=== PATIENT | female | born 1975 | race African-American/Black ===

== ENCOUNTER 2021-03-22 19:36 | Inpatient (IN) | payer MEDICAID ==
[~2021-03-22] VITALS: Ht 170.2 cm; Wt 119.5 kg
[2021-03-22] MEDS ORDERED: NITROGLYCERIN 0.4 MG SL TAB SL ONE (20:00)
[2021-03-22] MEDS ORDERED: FUROSEMIDE 20 MG/2 ML VIAL IV ONE (20:00)
[2021-03-22 20:37] LABS: Basophils # (auto) 0 10 ^3/uL (0-0.2); Basophils % (auto) 0.6 % (0.0-2.0); Eosinophils # (auto) 0.1 10 ^3/uL (0-0.8); Eosinophils % (auto) 1.6 % (0.0-7.0); Hematocrit 35.8 % (36.0-46.0); Hemoglobin 10.7 g/dL (12.2-16.2); Lymphocytes # (auto) 1.8 10 ^3/uL (0.4-5.4); Lymphocytes % (auto) 23.4 % (10.0-50.0); Mean Corpuscular Hemoglobin 22.9 pg (28.0-32.0); Mean Corpuscular Hgb Conc. 29.9 g/dL (32.0-36.0); Mean Corpuscular Volume 76.7 fL (80.0-100.0); Monocytes # (auto) 0.8 10 ^3/uL (0-1.3); Monocytes % (auto) 10.6 % (0.0-12.0); Neutrophils # (auto) 5.1 10 ^3/uL (1.6-8.6); Neutrophils % (auto) 63.8 % (37.0-80.0); Red Blood Cells 4.67 10^6/uL (4.0-5.20); White Blood Cell 7.9 10^3/uL (4.4-10.8)
[2021-03-22 20:38] LABS: Red Cell Distribution Width 22.2 % (11.8-14.3)
[2021-03-22 20:53] LABS: INR 1.08 (0.9-1.15); Partial Thromboplastin Time 25.6 sec (23.6-33.0)
[2021-03-22 20:56] LABS: Albumin 2.6 g/dL (3.4-5.0); Anion Gap 10 (5-15); Blood Urea Nitrogen 14 mg/dL (7-18); Calcium 8.5 mg/dL (8.5-10.1); Carbon Dioxide 23 mmol/L (21-32); Chloride 107 mmol/L (98-107); Glucose 104 mg/dL (74-106); Magnesium 2.1 mg/dL (1.6-2.6); Potassium 3.6 mmol/L (3.5-5.1); Sodium 140 mmol/L (136-145)
[2021-03-22 20:59] LABS: Alanine Aminotransferase 35 U/L (13-56); Aspartate Aminotransferase 27 U/L (15-37); GFR African American 77 mL/min; GFR Non-African American 64 mL/min
[2021-03-22 21:04] LABS: Alkaline Phosphatase 75 U/L (45-117); Bilirubin, Total 1.3 mg/dL (0.2-1.0); Total Protein 6.6 g/dL (6.4-8.2)
[2021-03-23] MEDS ORDERED: MORPHINE SULFATE INJECTION 2 MG/ML SYRG IV PRN (00:45)
[2021-03-23] MEDS ORDERED: DOCUSATE SOD 100 MG CAP PO PRN (00:45)
[2021-03-23] MEDS ORDERED: ACETAMINOPHEN 325 MG TAB PO PRN (00:45)
[2021-03-23] MEDS ORDERED: ONDANSETRON HCL 4 MG/2 ML VIAL IV PRN (00:45)
[2021-03-23] MEDS ORDERED: NITROGLYCERIN 0.4 MG SL TAB SL PRN (00:45)
[2021-03-23] MEDS ORDERED: HYDROcodone-ACET 5/325MG TAB PO PRN (00:45)
[2021-03-23] MEDS ORDERED: ALBUMIN 25% 50 ML IV ONE (00:45)
[2021-03-23 04:43] LABS: Eosinophils # (auto) 0.2 10 ^3/uL (0-0.8); Mean Corpuscular Hemoglobin 23.7 pg (28.0-32.0); Mean Corpuscular Volume 76.8 fL (80.0-100.0)
[2021-03-23 04:46] LABS: Basophils # (auto) 0 10 ^3/uL (0-0.2); Basophils % (auto) 0.5 % (0.0-2.0); Eosinophils % (auto) 2.6 % (0.0-7.0); Hemoglobin 11.4 g/dL (12.2-16.2); Lymphocytes # (auto) 2.1 10 ^3/uL (0.4-5.4); Lymphocytes % (auto) 28.2 % (10.0-50.0); Mean Corpuscular Hgb Conc. 30.9 g/dL (32.0-36.0); Monocytes # (auto) 0.9 10 ^3/uL (0-1.3); Monocytes % (auto) 11.6 % (0.0-12.0); Neutrophils # (auto) 4.2 10 ^3/uL (1.6-8.6); Neutrophils % (auto) 57.1 % (37.0-80.0); Nucleated Red Blood Cells % 0.1 %; Red Blood Cells 4.82 10^6/uL (4.0-5.20); White Blood Cell 7.3 10^3/uL (4.4-10.8)
[2021-03-23 04:55] LABS: Red Cell Distribution Width 22.1 % (11.8-14.3)
[2021-03-23 05:03] LABS: Potassium 3.7 mmol/L (3.5-5.1)
[2021-03-23 05:12] LABS: Albumin 2.7 g/dL (3.4-5.0); Bilirubin, Total 1.4 mg/dL (0.2-1.0); Calcium 8.5 mg/dL (8.5-10.1); Total Protein 6.7 g/dL (6.4-8.2)
[2021-03-23] MEDS: SODIUM CHLOR 0.9% PF (SALINE LOCK) 10ML VIAL/SYR IV SCH ×3 (06:41→21:59)
[2021-03-23] MEDS ORDERED: ASCORBIC ACID 500 MG TAB PO SCH (10:00)
[2021-03-23] MEDS: HEPARIN SODIUM (PORCINE) 5000 UNITS/ML 1ML VIAL SC SCH ×2 (10:00→22:01)
[2021-03-23] MEDS ORDERED: FAMOTIDINE (10MG/ML) 2ML VL IV SCH (10:00)
[2021-03-23] MEDS ORDERED: FUROSEMIDE 40 MG/4 ML VIAL IV SCH (10:00)
[2021-03-23] MEDS: MULTIPLE VITAMIN TAB PO SCH (10:00)
[2021-03-23] MEDS ORDERED: ZINC SULFATE 220mg CAP or TAB PO SCH (10:00)
[2021-03-23] MEDS: ASPirin 81 mg TAB PO SCH (10:00)
[2021-03-23 10:25] LABS: Barbiturate Scree,Urine NEGATIVE (NEGATIVE); Benzodiazephine Screen, Urine NEGATIVE (NEGATIVE); Cannabinoid Screen, Urine POSITIVE (NEGATIVE); Cocaine Screen, Urine POSITIVE (NEGATIVE); Opiate Scree,Urine NEGATIVE (NEGATIVE); Phencyclidine Screen, Urine POSITIVE (NEGATIVE)
[2021-03-23 10:33] LABS: Amphetamine Screen, Urine NEGATIVE (NEGATIVE)
[2021-03-23] MEDS: FUROSEMIDE 40 MG/4 ML VIAL IV SCH (18:20)
[2021-03-23] MEDS: HYDROcodone-ACET 10/325MG TAB PO PRN (20:42)
[2021-03-23] MEDS: MORPHINE SULFATE 4 MG/ML SYR/VIAL IV PRN (20:43)
[2021-03-23] MEDS: POTASSIUM CHL 10 Meq TABLET PO SCH (21:55)
[2021-03-23] MEDS: METOPROLOL TARTRATE 25 MG TAB PO SCH (21:56)
[2021-03-23] MEDS: metOLazone 5 MG TAB PO SCH (22:00)
[2021-03-24] VITALS (7 sets, daily range): BP systolic 85–107; BP diastolic 64–79
[2021-03-24] MEDS: LORazepam 2MG/ML-1ML VIAL IV PRN ×2 (01:07→13:40)
[2021-03-24] MEDS: SODIUM CHLOR 0.9% PF (SALINE LOCK) 10ML VIAL/SYR IV SCH ×3 (04:58→22:00)
[2021-03-24] MEDS: FUROSEMIDE 40 MG/4 ML VIAL IV SCH (05:31)
[2021-03-24 05:38] LABS: Basophils # (auto) 0 10 ^3/uL (0-0.2); Mean Corpuscular Hgb Conc. 30.7 g/dL (32.0-36.0); Mean Corpuscular Volume 76.6 fL (80.0-100.0); Nucleated Red Blood Cells % 0.1 %; Red Blood Cells 4.57 10^6/uL (4.0-5.20); Red Cell Distribution Width 22.6 % (11.8-14.3)
[2021-03-24 05:44] LABS: Potassium 4.1 mmol/L (3.5-5.1)
[2021-03-24 05:45] LABS: Basophils % (auto) 0.6 % (0.0-2.0); Eosinophils # (auto) 0.2 10 ^3/uL (0-0.8); Eosinophils % (auto) 2.7 % (0.0-7.0); Hematocrit 35.1 % (36.0-46.0); Hemoglobin 10.8 g/dL (12.2-16.2); Lymphocytes # (auto) 1.7 10 ^3/uL (0.4-5.4); Lymphocytes % (auto) 25.4 % (10.0-50.0); Mean Corpuscular Hemoglobin 23.6 pg (28.0-32.0); Monocytes # (auto) 0.7 10 ^3/uL (0-1.3); Monocytes % (auto) 9.8 % (0.0-12.0); Neutrophils # (auto) 4.1 10 ^3/uL (1.6-8.6); Neutrophils % (auto) 61.5 % (37.0-80.0); White Blood Cell 6.7 10^3/uL (4.4-10.8)
[2021-03-24 05:53] LABS: Albumin 2.6 g/dL (3.4-5.0); BUN/Creatinine Ratio 17.7; Bilirubin, Total 1.2 mg/dL (0.2-1.0); Calcium 8.7 mg/dL (8.5-10.1); Total Protein 6.5 g/dL (6.4-8.2)
[2021-03-24] MEDS: ASPirin 81 mg TAB PO SCH (09:50)
[2021-03-24] MEDS: MULTIPLE VITAMIN TAB PO SCH (09:50)
[2021-03-24] MEDS: POTASSIUM CHL 10 Meq TABLET PO SCH ×2 (09:50→21:51)
[2021-03-24] MEDS: METOPROLOL TARTRATE 25 MG TAB PO SCH ×2 (09:53→21:51)
[2021-03-24] MEDS: metOLazone 5 MG TAB PO SCH ×2 (09:53→21:50)
[2021-03-24] MEDS: HYDROcodone-ACET 10/325MG TAB PO PRN ×3 (09:54→21:51)
[2021-03-24] MEDS: HEPARIN SODIUM (PORCINE) 5000 UNITS/ML 1ML VIAL SC SCH ×2 (10:02→22:00)
[2021-03-24] MEDS: MORPHINE SULFATE 4 MG/ML SYR/VIAL IV PRN (15:03)
[2021-03-24] MEDS ORDERED: FUROSEMIDE 40 MG/4 ML VIAL IV SCH (18:00)
[2021-03-25] MEDS: HYDROcodone-ACET 10/325MG TAB PO PRN ×4 (04:02→20:14)
[2021-03-25 05:00] VITALS: BP 95/60
[2021-03-25] MEDS: SODIUM CHLOR 0.9% PF (SALINE LOCK) 10ML VIAL/SYR IV SCH ×3 (06:00→22:00)
[2021-03-25] MEDS: POTASSIUM CHL 10 Meq TABLET PO SCH (09:14)
[2021-03-25] MEDS: ASPirin 81 mg TAB PO SCH (09:15)
[2021-03-25] MEDS: MULTIPLE VITAMIN TAB PO SCH (09:15)
[2021-03-25] MEDS: METOPROLOL TARTRATE 25 MG TAB PO SCH ×2 (09:18→22:00)
[2021-03-25] MEDS: FUROSEMIDE 40 MG/4 ML VIAL IV SCH (09:19)
[2021-03-25] MEDS: metOLazone 5 MG TAB PO SCH (09:20)
[2021-03-25] MEDS: HEPARIN SODIUM (PORCINE) 5000 UNITS/ML 1ML VIAL SC SCH ×2 (09:33→22:00)
[2021-03-25 09:38] VITALS: BP 96/61
[2021-03-25] MEDS: InsuLIN REG 1unit/0.01ml Soln (100units/ml) SC SCH ×3 (11:30→22:00)
[2021-03-25] MEDS: ACCU-CHEK COMFORT CURVE STRIP VI SCH ×3 (11:30→22:00)
[2021-03-25] MEDS ORDERED: DEXTROSE (50%) 50ML SYRG IV PRN (11:30)
[2021-03-25 12:47] VITALS: BP 100/57
[2021-03-25] MEDS ORDERED: ALBUTEROL SULF 2.5 MG/0.5ML(0.5%) NEB SOLN NEB PRN (14:00)
[2021-03-25] MEDS ORDERED: IPRATROPIUM BROM 0.5 MG/2.5ML INH SOL NEB PRN (14:00)
[2021-03-25] MEDS: LORazepam 2MG/ML-1ML VIAL IV PRN (16:14)
[2021-03-25 16:59] VITALS: BP 99/59
[2021-03-25 23:37] VITALS: BP 96/48
[2021-03-26] MEDS: HYDROcodone-ACET 10/325MG TAB PO PRN ×2 (01:04→06:05)
[2021-03-26 05:16] VITALS: BP 99/51
[2021-03-26 05:57] VITALS: BP 120/78
[2021-03-26] MEDS: SODIUM CHLOR 0.9% PF (SALINE LOCK) 10ML VIAL/SYR IV SCH ×2 (06:00→14:00)
[2021-03-26] MEDS: InsuLIN REG 1unit/0.01ml Soln (100units/ml) SC SCH ×2 (06:30→11:30)
[2021-03-26] MEDS: ACCU-CHEK COMFORT CURVE STRIP VI SCH ×2 (06:30→11:48)
[2021-03-26 06:46] LABS: INR 1.08 (0.9-1.15); Partial Thromboplastin Time 25.2 sec (23.6-33.0)
[2021-03-26 07:00] LABS: BUN/Creatinine Ratio 24.2; Calcium 9.1 mg/dL (8.5-10.1)
[2021-03-26 08:20] VITALS: BP 120/73
[2021-03-26 09:00] VITALS: BP 120/73
[2021-03-26] MEDS: ASPirin 81 mg TAB PO SCH (09:32)
[2021-03-26] MEDS: FUROSEMIDE 40 MG/4 ML VIAL IV SCH (09:32)
[2021-03-26] MEDS: MULTIPLE VITAMIN TAB PO SCH (09:34)
[2021-03-26] MEDS: METOPROLOL TARTRATE 25 MG TAB PO SCH (09:34)
[2021-03-26] MEDS: HEPARIN SODIUM (PORCINE) 5000 UNITS/ML 1ML VIAL SC SCH (09:35)
[2021-03-26] MEDS ORDERED: POTASSIUM CHL 10 Meq TABLET PO SCH (10:00)
[2021-03-26] MEDS ORDERED: metOLazone 5 MG TAB PO SCH (10:00)
[2021-03-26 12:57] VITALS: BP 118/70
[2021-03-26 13:00] VITALS: BP 118/70
[2021-03-26] MEDS ORDERED: LISI-275 PO (14:02)
[2021-03-26] MEDS ORDERED: POTA8TAB15 PO (14:02)
[2021-03-26] MEDS ORDERED: CAR3125T PO (14:02)
[2021-03-26] MEDS ORDERED: TORS5TAB8 PO (14:02)
== END 2021-03-26 15:00 | disposition home or self-care (01) | DRG 194 ==
LOC: ER 19:36 → EDBD 19:36 → TELE 03-23 00:39 → TELE-CENTR 03-23 23:18
PROVIDERS: ADMIT Nurse Practitioner Family; ATTEND Hospitalist
DX: I11.0 Hypertensive heart disease with heart failure (principal); I42.0 Dilated cardiomyopathy; E88.09 Other disorders of plasma-protein metabolism, not elsewhere classified; I50.23 Acute on chronic systolic (congestive) heart failure; Z20.822 Contact with and (suspected) exposure to COVID-19; E11.9 Type 2 diabetes mellitus without complications; E66.01 Morbid (severe) obesity due to excess calories; F12.90 Cannabis use, unspecified, uncomplicated; F19.20 Other psychoactive substance dependence, uncomplicated; I49.3 Ventricular premature depolarization; G89.29 Other chronic pain; J44.9 Chronic obstructive pulmonary disease, unspecified; Z87.891 Personal history of nicotine dependence; Z91.14 Patient's other noncompliance with medication regimen; Z68.41 Body mass index [BMI] 40.0-44.9, adult
CPT/HCPCS: 36415; 71045; 80048; 80053; 80061; 80307; 82962; 83036; 83735; 83880; 84484; 85025; 85379; 85610; 85730; 87426; 93005; 93306; 94640; 96365; 96375; 96376; G0378; J3490

== ENCOUNTER 2021-03-30 22:24 | Inpatient (IN) | payer MEDICAID ==
[~2021-03-30] VITALS: Ht 172.7 cm; Wt 129.0 kg
[~2021-03-30 22:24] MED LIST: CAR3125T PO; LISI-275 PO; POTA8TAB15 PO; TORS5TAB8 PO
[2021-03-30] MEDS ORDERED: FUROSEMIDE 40 MG/4 ML VIAL IV ONE (22:45)
[2021-03-30 23:06] LABS: Basophils # (auto) 0.1 10 ^3/uL (0-0.2); Eosinophils # (auto) 0.1 10 ^3/uL (0-0.8); Hemoglobin 10.9 g/dL (12.2-16.2)
[2021-03-30 23:08] LABS: Basophils % (auto) 0.7 % (0.0-2.0); Eosinophils % (auto) 1.1 % (0.0-7.0); Hematocrit 36.2 % (36.0-46.0); Mean Corpuscular Volume 76.9 fL (80.0-100.0); Monocytes % (auto) 13.1 % (0.0-12.0); Neutrophils # (auto) 4.2 10 ^3/uL (1.6-8.6); Neutrophils % (auto) 57.1 % (37.0-80.0); Nucleated Red Blood Cells % 0.1 %; Red Blood Cells 4.71 10^6/uL (4.0-5.20); Red Cell Distribution Width 22.4 % (11.8-14.3); White Blood Cell 7.3 10^3/uL (4.4-10.8)
[2021-03-30 23:13] LABS: Urine Bacteria NONE SEEN /hpf (None Seen); Urine Blood 1+ /uL (Negative); Urine Hyaline Cast FEW /lpf (0 - 2); Urine Mucus FEW (None Seen); Urine Specific Gravity 1.018 (1.001-1.035); Urine WBC 278 /hpf (0 - 5)
[2021-03-30 23:25] LABS: Alanine Aminotransferase 40 U/L (13-56); Albumin 2.8 g/dL (3.4-5.0); Aspartate Aminotransferase 32 U/L (15-37); BUN/Creatinine Ratio 20.3; Blood Urea Nitrogen 30 mg/dL (7-18); Calcium 9.2 mg/dL (8.5-10.1); Carbon Dioxide 22 mmol/L (21-32); GFR African American 49 mL/min; GFR Non-African American 41 mL/min; Glucose 124 mg/dL (74-106)
[2021-03-30 23:32] LABS: Alkaline Phosphatase 77 U/L (45-117); Bilirubin, Total 1.1 mg/dL (0.2-1.0); Total Protein 6.8 g/dL (6.4-8.2)
[2021-03-31 00:26] LABS: Anion Gap 12 (5-15); Chloride 110 mmol/L (98-107); Potassium 4.8 mmol/L (3.5-5.1); Sodium 144 mmol/L (136-145)
[2021-03-31] MEDS ORDERED: cefTRIAXone 1GM/50ML D5W 50 ML IV ONE (00:30)
[2021-03-31] MEDS ORDERED: SODIUM CHLORIDE 0.9% 250 ML IV ONE (00:45)
[2021-03-31] MEDS ORDERED: NITROGLYCERIN 0.4 MG SL TAB SL PRN (01:30)
[2021-03-31] MEDS ORDERED: methylPREDNISolone SOD SUCC 125 MG/2 ML VL IV ONE (01:30)
[2021-03-31] MEDS ORDERED: DEXTROSE (50%) 50ML SYRG IV PRN (01:30)
[2021-03-31] MEDS ORDERED: MORPHINE SULFATE INJECTION 2 MG/ML SYRG IV PRN (01:30)
[2021-03-31] MEDS ORDERED: ACETAMINOPHEN 325 MG TAB PO PRN (01:30)
[2021-03-31] MEDS ORDERED: ONDANSETRON HCL 4 MG/2 ML VIAL IV PRN (01:30)
[2021-03-31] MEDS ORDERED: ALBUMIN 25% 100 ML IV ONE (01:30)
[2021-03-31] MEDS: HYDROcodone-ACET 5/325MG TAB PO PRN ×4 (02:31→22:46)
[2021-03-31 04:15] LABS: Hematocrit 34.9 % (36.0-46.0); Hemoglobin 10.9 g/dL (12.2-16.2)
[2021-03-31 04:17] LABS: Basophils # (auto) 0.1 10 ^3/uL (0-0.2); Basophils % (auto) 0.8 % (0.0-2.0); Eosinophils # (auto) 0.1 10 ^3/uL (0-0.8); Eosinophils % (auto) 1.4 % (0.0-7.0); Lymphocytes # (auto) 1.5 10 ^3/uL (0.4-5.4); Lymphocytes % (auto) 22.3 % (10.0-50.0); Mean Corpuscular Hemoglobin 23.8 pg (28.0-32.0); Mean Corpuscular Hgb Conc. 31.2 g/dL (32.0-36.0); Mean Corpuscular Volume 76.2 fL (80.0-100.0); Monocytes # (auto) 0.6 10 ^3/uL (0-1.3); Monocytes % (auto) 8.9 % (0.0-12.0); Neutrophils # (auto) 4.5 10 ^3/uL (1.6-8.6); Neutrophils % (auto) 66.6 % (37.0-80.0); Nucleated Red Blood Cells % 0.3 %; Red Blood Cells 4.58 10^6/uL (4.0-5.20); Red Cell Distribution Width 22.1 % (11.8-14.3); White Blood Cell 6.8 10^3/uL (4.4-10.8)
[2021-03-31 04:30] LABS: Albumin 2.8 g/dL (3.4-5.0); BUN/Creatinine Ratio 22.4; Calcium 8.8 mg/dL (8.5-10.1); Potassium 3.9 mmol/L (3.5-5.1)
[2021-03-31 04:32] LABS: Bilirubin, Total 1.1 mg/dL (0.2-1.0); Total Protein 6.8 g/dL (6.4-8.2)
[2021-03-31] MEDS: SODIUM CHLOR 0.9% PF (SALINE LOCK) 10ML VIAL/SYR IV SCH ×3 (06:08→22:00)
[2021-03-31] MEDS: ACCU-CHEK COMFORT CURVE STRIP VI SCH ×4 (06:41→22:18)
[2021-03-31] MEDS: InsuLIN REG 1unit/0.01ml Soln (100units/ml) SC SCH ×3 (06:42→17:23)
[2021-03-31 08:30] VITALS: BP 113/67
[2021-03-31 09:00] VITALS: BP 113/67
[2021-03-31] MEDS ORDERED: FUROSEMIDE 20 MG/2 ML VIAL IV SCH (10:00)
[2021-03-31] MEDS: MULTIPLE VITAMIN TAB PO SCH (10:03)
[2021-03-31] MEDS: ASCORBIC ACID 500 MG TAB PO SCH ×2 (10:03→22:05)
[2021-03-31] MEDS: ZINC SULFATE 220mg CAP or TAB PO SCH (10:03)
[2021-03-31] MEDS: FAMOTIDINE (10MG/ML) 2ML VL IV SCH ×2 (10:03→22:04)
[2021-03-31] MEDS: HEPARIN SODIUM (PORCINE) 5000 UNITS/ML 1ML VIAL SC SCH ×2 (10:04→22:20)
[2021-03-31 13:00] VITALS: BP 115/68
[2021-03-31] MEDS: CARVEDILOL 3.125 MG TAB PO SCH ×2 (14:50→22:10)
[2021-03-31 17:00] VITALS: BP 141/75
[2021-03-31] MEDS: FUROSEMIDE 40 MG/4 ML VIAL IV SCH (18:00)
[2021-03-31 22:00] VITALS: BP 112/70
[2021-03-31] MEDS ORDERED: cefTRIAXone 1GM/50ML D5W 50 ML IV SCH (22:00)
[2021-03-31] MEDS ORDERED: InsuLIN REG 1unit/0.01ml Soln (100units/ml) SC SCH (22:00)
[2021-04-01 05:00] VITALS: BP 110/69
[2021-04-01 05:15] LABS: Eosinophils # (auto) 0 10 ^3/uL (0-0.8); Eosinophils % (auto) 0.2 % (0.0-7.0); Monocytes # (auto) 1.3 10 ^3/uL (0-1.3); Neutrophils # (auto) 7.3 10 ^3/uL (1.6-8.6); Nucleated Red Blood Cells % 0.1 %
[2021-04-01 05:17] LABS: Basophils # (auto) 0.1 10 ^3/uL (0-0.2); Basophils % (auto) 0.5 % (0.0-2.0); Hematocrit 36.2 % (36.0-46.0); Hemoglobin 11.4 g/dL (12.2-16.2); Lymphocytes # (auto) 2.3 10 ^3/uL (0.4-5.4); Lymphocytes % (auto) 20.8 % (10.0-50.0); Mean Corpuscular Hemoglobin 24.1 pg (28.0-32.0); Mean Corpuscular Hgb Conc. 31.5 g/dL (32.0-36.0); Mean Corpuscular Volume 76.3 fL (80.0-100.0); Monocytes % (auto) 11.8 % (0.0-12.0); Neutrophils % (auto) 66.7 % (37.0-80.0); Red Blood Cells 4.74 10^6/uL (4.0-5.20); Red Cell Distribution Width 21.7 % (11.8-14.3)
[2021-04-01 05:23] LABS: Albumin 2.9 g/dL (3.4-5.0); Calcium 9.3 mg/dL (8.5-10.1)
[2021-04-01 05:26] LABS: BUN/Creatinine Ratio 24.8
[2021-04-01 05:45] LABS: Bilirubin, Total 1.4 mg/dL (0.2-1.0); Total Protein 7.1 g/dL (6.4-8.2)
[2021-04-01] MEDS: FUROSEMIDE 40 MG/4 ML VIAL IV SCH (06:11)
[2021-04-01] MEDS: SODIUM CHLOR 0.9% PF (SALINE LOCK) 10ML VIAL/SYR IV SCH ×2 (06:16→14:17)
[2021-04-01] MEDS: InsuLIN REG 1unit/0.01ml Soln (100units/ml) SC SCH ×3 (06:17→16:42)
[2021-04-01] MEDS: ACCU-CHEK COMFORT CURVE STRIP VI SCH ×3 (06:49→16:42)
[2021-04-01] MEDS: CARVEDILOL 3.125 MG TAB PO SCH (08:56)
[2021-04-01] MEDS: FAMOTIDINE (10MG/ML) 2ML VL IV SCH (08:57)
[2021-04-01] MEDS: ASCORBIC ACID 500 MG TAB PO SCH (08:57)
[2021-04-01] MEDS: MULTIPLE VITAMIN TAB PO SCH (08:57)
[2021-04-01] MEDS: ZINC SULFATE 220mg CAP or TAB PO SCH (08:57)
[2021-04-01] MEDS: HEPARIN SODIUM (PORCINE) 5000 UNITS/ML 1ML VIAL SC SCH (08:58)
[2021-04-01] MEDS: HYDROcodone-ACET 5/325MG TAB PO PRN (08:59)
[2021-04-01 09:00] VITALS: BP 97/66
[2021-04-01] MEDS ORDERED: CAR3125T PO (11:20)
[2021-04-01] MEDS ORDERED: CEPH500T PO (11:20)
[2021-04-01] MEDS ORDERED: FURO1TAB31 PO (11:21)
[2021-04-01 13:00] VITALS: BP 89/73
[2021-04-01 14:20] VITALS: BP 114/69
[2021-04-01] MEDS ORDERED: BAC09TP TOP (15:14)
[2021-04-01] MEDS ORDERED: MUPIROCIN 2% OINT 15gm or 22gm TOP SCH (15:15)
[2021-04-01 16:29] LABS: Protein, Urine 32.4 mg/dL (0.0-11.9)
[2021-04-01 17:00] VITALS: BP 101/68
[2021-04-01] MEDS ORDERED: ALBU0.08 HHN (17:10)
[2021-04-01] MEDS ORDERED: IPR002IS NEB (17:10)
[2021-04-01] MEDS ORDERED: ALBUAER3 IN (17:10)
== END 2021-04-01 18:44 | disposition home health service (06) | DRG 469 ==
LOC: ER 22:25 → TELE 03-31 01:25 → TELE-WESTW 03-31 08:00
PROVIDERS: ADMIT Nurse Practitioner Family; ATTEND Nurse Practitioner Family
DX: N17.9 Acute kidney failure, unspecified (principal); I50.23 Acute on chronic systolic (congestive) heart failure; I42.9 Cardiomyopathy, unspecified; E11.22 Type 2 diabetes mellitus with diabetic chronic kidney disease; E88.09 Other disorders of plasma-protein metabolism, not elsewhere classified; L97.329 Non-pressure chronic ulcer of left ankle with unspecified severity; I13.0 Hypertensive heart and chronic kidney disease with heart failure and stage 1 through stage 4 chronic kidney disease, or unspecified chronic kidney disease; E11.622 Type 2 diabetes mellitus with other skin ulcer; E66.01 Morbid (severe) obesity due to excess calories; Z68.41 Body mass index [BMI] 40.0-44.9, adult; G89.29 Other chronic pain; M54.5 Low back pain; Z20.822 Contact with and (suspected) exposure to COVID-19; J44.9 Chronic obstructive pulmonary disease, unspecified; N18.2 Chronic kidney disease, stage 2 (mild); N39.0 Urinary tract infection, site not specified; R09.02 Hypoxemia; Z79.899 Other long term (current) drug therapy; Z87.891 Personal history of nicotine dependence; Z98.891 History of uterine scar from previous surgery; Z91.14 Patient's other noncompliance with medication regimen
CPT/HCPCS: 36415; 71045; 76775; 80053; 81001; 81025; 82570; 82962; 83880; 84156; 84484; 85025; 87081; 87086; 87426; 93005; 96365; 96367; 96375; G0378; J0696; J1815; J3490; P9047

== ENCOUNTER 2021-05-22 08:14 | Inpatient (IN) | payer MEDICAID ==
[~2021-05-22] VITALS: Ht 170.2 cm; Wt 124.6 kg
[~2021-05-22 08:14] MED LIST changes: +ALBU0.08 HHN; +ALBUAER3 IN; +BAC09TP TOP; +CEPH500T PO; +FURO1TAB31 PO; +IPR002IS NEB; -LISI-275 PO; -POTA8TAB15 PO; -TORS5TAB8 PO
[2021-05-22] MEDS ORDERED: FUROSEMIDE 40 MG/4 ML VIAL IV ONE (08:45)
[2021-05-22] MEDS ORDERED: ASPirin 81 mg TAB PO ONE (08:45)
[2021-05-22 08:56] LABS: Basophils # (auto) 0.1 10 ^3/uL (0-0.2); Basophils % (auto) 0.7 % (0.0-2.0); Eosinophils # (auto) 0.1 10 ^3/uL (0-0.8); Hematocrit 36.8 % (36.0-46.0); Hemoglobin 11.4 g/dL (12.2-16.2); Lymphocytes # (auto) 1.7 10 ^3/uL (0.4-5.4); Lymphocytes % (auto) 21.5 % (10.0-50.0); Mean Corpuscular Hemoglobin 24.1 pg (28.0-32.0); Mean Corpuscular Volume 77.8 fL (80.0-100.0); Monocytes # (auto) 0.8 10 ^3/uL (0-1.3); Monocytes % (auto) 10.4 % (0.0-12.0); Neutrophils # (auto) 5.2 10 ^3/uL (1.6-8.6); Neutrophils % (auto) 66.4 % (37.0-80.0); Nucleated Red Blood Cells % 0.1 %; Red Blood Cells 4.73 10^6/uL (4.0-5.20); Red Cell Distribution Width 19.1 % (11.8-14.3); White Blood Cell 7.8 10^3/uL (4.4-10.8)
[2021-05-22 09:15] LABS: Albumin 2.9 g/dL (3.4-5.0); Calcium 8.4 mg/dL (8.5-10.1); Potassium 3.8 mmol/L (3.5-5.1)
[2021-05-22 09:20] LABS: BUN/Creatinine Ratio 9.6; Bilirubin, Total 2.4 mg/dL (0.2-1.0); Total Protein 7.1 g/dL (6.4-8.2)
[2021-05-22 10:27] LABS: Urine Bacteria NONE SEEN /hpf (None Seen); Urine Blood 1+ /uL (Negative); Urine Specific Gravity 1.008 (1.001-1.035); Urine WBC 114 /hpf (0 - 5)
[2021-05-22] MEDS ORDERED: MORPHINE SULFATE 4 MG/ML SYR/VIAL IV ONE (11:45)
[2021-05-22] MEDS ORDERED: ONDANSETRON HCL 4 MG/2 ML VIAL IV ONE (11:45)
[2021-05-22] MEDS ORDERED: MORPHINE SULFATE INJECTION 2 MG/ML SYRG IV PRN (13:45)
[2021-05-22] MEDS ORDERED: ACETAMINOPHEN 325 MG TAB PO PRN (13:45)
[2021-05-22] MEDS ORDERED: ALBUTEROL SULF 2.5 MG/0.5ML(0.5%) NEB SOLN NEB PRN (13:45)
[2021-05-22] MEDS ORDERED: DEXTROSE (50%) 50ML SYRG IV PRN (13:45)
[2021-05-22] MEDS ORDERED: NITROGLYCERIN 0.4 MG SL TAB SL PRN (13:45)
[2021-05-22] MEDS ORDERED: HYDROcodone-ACET 5/325MG TAB PO PRN (13:45)
[2021-05-22 13:59] VITALS: BP 118/79
[2021-05-22] MEDS: cefTRIAXone 1GM/50ML D5W 50 ML IV SCH (15:06)
[2021-05-22] MEDS: POTASSIUM CHL 20 Meq TABLET PO SCH (15:06)
[2021-05-22 15:31] LABS: Cholesterol 112 mg/dL (< 200); HDL Cholesterol 37 mg/dL (40-59); LDL Cholesterol 79 mg/dL (< 100); Triglycerides 56 mg/dL (< 150)
[2021-05-22 15:48] LABS: Barbiturate Scree,Urine NEGATIVE (NEGATIVE); Benzodiazephine Screen, Urine NEGATIVE (NEGATIVE); Opiate Scree,Urine NEGATIVE (NEGATIVE)
[2021-05-22 16:07] LABS: Phencyclidine Screen, Urine NEGATIVE (NEGATIVE)
[2021-05-22 16:08] LABS: Amphetamine Screen, Urine POSITIVE (NEGATIVE); Cannabinoid Screen, Urine POSITIVE (NEGATIVE); Cocaine Screen, Urine POSITIVE (NEGATIVE)
[2021-05-22] MEDS: InsuLIN REG 1unit/0.01ml Soln (100units/ml) SC SCH (17:00)
[2021-05-22] MEDS: ACCU-CHEK COMFORT CURVE STRIP VI SCH (17:01)
[2021-05-22] MEDS: FUROSEMIDE 40 MG/4 ML VIAL IV SCH (17:47)
[2021-05-22 20:00] VITALS: BP 125/77
[2021-05-22] MEDS ORDERED: ATORVASTATIN 20 MG TAB PO SCH (22:00)
[2021-05-22] MEDS ORDERED: InsuLIN REG 1unit/0.01ml Soln (100units/ml) SC SCH (22:00)
[2021-05-22 22:26] VITALS: BP 103/65
[2021-05-23] MEDS: POTASSIUM CHL 20 Meq TABLET PO SCH ×2 (00:03→09:30)
[2021-05-23] MEDS: ACCU-CHEK COMFORT CURVE STRIP VI SCH ×4 (00:04→17:00)
[2021-05-23 04:48] VITALS: BP 106/63
[2021-05-23] MEDS: InsuLIN REG 1unit/0.01ml Soln (100units/ml) SC SCH ×3 (06:35→17:00)
[2021-05-23] MEDS: FUROSEMIDE 40 MG/4 ML VIAL IV SCH (06:35)
[2021-05-23 08:01] LABS: Basophils # (auto) 0 10 ^3/uL (0-0.2); Eosinophils # (auto) 0.2 10 ^3/uL (0-0.8); Monocytes # (auto) 0.9 10 ^3/uL (0-1.3); Neutrophils # (auto) 3.3 10 ^3/uL (1.6-8.6)
[2021-05-23 08:07] LABS: Basophils % (auto) 0.7 % (0.0-2.0); Eosinophils % (auto) 2.8 % (0.0-7.0); Hematocrit 35.5 % (36.0-46.0); Hemoglobin 10.9 g/dL (12.2-16.2); Lymphocytes # (auto) 1.7 10 ^3/uL (0.4-5.4); Lymphocytes % (auto) 27.1 % (10.0-50.0); Mean Corpuscular Hemoglobin 23.9 pg (28.0-32.0); Mean Corpuscular Hgb Conc. 30.8 g/dL (32.0-36.0); Mean Corpuscular Volume 77.6 fL (80.0-100.0); Monocytes % (auto) 15.1 % (0.0-12.0); Neutrophils % (auto) 54.3 % (37.0-80.0); Nucleated Red Blood Cells % 0.1 %; Potassium 4.5 mmol/L (3.5-5.1); Red Blood Cells 4.57 10^6/uL (4.0-5.20); Red Cell Distribution Width 18.3 % (11.8-14.3); White Blood Cell 6.1 10^3/uL (4.4-10.8)
[2021-05-23 08:13] LABS: BUN/Creatinine Ratio 9.6; Calcium 8.7 mg/dL (8.5-10.1)
[2021-05-23 09:00] VITALS: BP 101/65
[2021-05-23] MEDS: cefTRIAXone 1GM/50ML D5W 50 ML IV SCH (09:38)
[2021-05-23] MEDS ORDERED: ASPirin 81 mg TAB PO SCH (10:00)
[2021-05-23] MEDS ORDERED: ENOXAPARIN SOD 40 MG/0.4 ML SYRINGE SC SCH (10:00)
[2021-05-23] MEDS ORDERED: PANTOPRAZOLE 40 MG TAB PO SCH (10:00)
[2021-05-23 10:30] VITALS: BP 101/65
[2021-05-23 13:00] VITALS: BP_SYST 109; BP_SYST 129; BP_DIAS 62; BP_DIAS 80
[2021-05-23] MEDS ORDERED: IPR002IS NEB (15:48)
[2021-05-23] MEDS ORDERED: ASPI1CHW15 PO (15:48)
[2021-05-23] MEDS ORDERED: ALBU0.08 HHN (15:48)
[2021-05-23] MEDS ORDERED: POTA-220 PO (15:48)
[2021-05-23] MEDS ORDERED: ALBUAER3 IN (15:48)
[2021-05-23] MEDS ORDERED: CAR3125T PO (15:48)
[2021-05-23] MEDS ORDERED: FURO1TAB31 PO (15:48)
[2021-05-23] MEDS ORDERED: LEVO500T31 PO (15:54)
[2021-05-23 15:59] VITALS: BP 109/62
== END 2021-05-23 17:28 | disposition home or self-care (01) | DRG 194 ==
LOC: ER 08:14 → TELE 13:32 → TELE-WESTW 17:21 → TELE 17:36
PROVIDERS: ADMIT Internal Medicine; ATTEND Internal Medicine
DX: I11.0 Hypertensive heart disease with heart failure (principal); I42.9 Cardiomyopathy, unspecified; D64.9 Anemia, unspecified; E11.9 Type 2 diabetes mellitus without complications; E66.9 Obesity, unspecified; I50.23 Acute on chronic systolic (congestive) heart failure; Z20.822 Contact with and (suspected) exposure to COVID-19; F19.10 Other psychoactive substance abuse, uncomplicated; N39.0 Urinary tract infection, site not specified; J44.9 Chronic obstructive pulmonary disease, unspecified; Z87.891 Personal history of nicotine dependence; Z68.41 Body mass index [BMI] 40.0-44.9, adult; Z91.14 Patient's other noncompliance with medication regimen; Z82.49 Family history of ischemic heart disease and other diseases of the circulatory system; Z82.3 Family history of stroke; Z72.89 Other problems related to lifestyle
CPT/HCPCS: 36415; 71045; 80048; 80053; 80061; 80307; 81001; 82728; 82962; 83540; 83550; 83880; 84484; 85025; 87086; 87426; 93005; 96365; 96375; 99291; G0378; J0696; J2405

== ENCOUNTER 2021-05-29 10:03 | Emergency (ER) | payer MEDICAID ==
[~2021-05-29] VITALS: Ht 170.2 cm; Wt 121.6 kg
[~2021-05-29 10:03] MED LIST changes: +ASPI1CHW15 PO; -BAC09TP TOP; -CEPH500T PO; +LEVO500T31 PO; +POTA-220 PO
[2021-05-29] MEDS ORDERED: FUROSEMIDE 40 MG/4 ML VIAL IV ONE (10:15)
[2021-05-29] MEDS ORDERED: ASPirin 81 mg TAB PO ONE ×2 (10:15→10:30)
[2021-05-29] MEDS ORDERED: chlordiazePOXIDE HCL 25 MG CAP PO ONE (10:30)
[2021-05-29 10:55] LABS: Basophils # (auto) 0 10 ^3/uL (0-0.2); Eosinophils # (auto) 0.1 10 ^3/uL (0-0.8); Hemoglobin 12.2 g/dL (12.2-16.2); Monocytes # (auto) 0.6 10 ^3/uL (0-1.3); White Blood Cell 6.5 10^3/uL (4.4-10.8)
[2021-05-29 10:58] LABS: Basophils % (auto) 0.6 % (0.0-2.0); Eosinophils % (auto) 1.1 % (0.0-7.0); Lymphocytes # (auto) 1.8 10 ^3/uL (0.4-5.4); Lymphocytes % (auto) 28.5 % (10.0-50.0); Mean Corpuscular Hemoglobin 23.4 pg (28.0-32.0); Mean Corpuscular Hgb Conc. 30.4 g/dL (32.0-36.0); Mean Corpuscular Volume 76.9 fL (80.0-100.0); Monocytes % (auto) 9.4 % (0.0-12.0); Neutrophils # (auto) 3.9 10 ^3/uL (1.6-8.6); Neutrophils % (auto) 60.4 % (37.0-80.0); Red Cell Distribution Width 18.5 % (11.8-14.3)
[2021-05-29 11:07] LABS: Albumin 3.3 g/dL (3.4-5.0); Calcium 8.8 mg/dL (8.5-10.1); INR 1.18 (0.9-1.15); Partial Thromboplastin Time 26.2 sec (23.6-33.0)
[2021-05-29 11:13] LABS: BUN/Creatinine Ratio 16.3; Bilirubin, Total 2.7 mg/dL (0.2-1.0); Total Protein 8.1 g/dL (6.4-8.2)
[2021-05-29 15:17] LABS: Urine Bacteria NONE SEEN /hpf (None Seen); Urine Blood 1+ /uL (Negative); Urine Mucus FEW (None Seen); Urine Specific Gravity 1.025 (1.001-1.035); Urine WBC 79 /hpf (0 - 5)
[2021-05-29 16:32] VITALS: BP 141/95
== END 2021-05-29 17:44 | disposition home or self-care (01) ==
LOC: EDBD 10:03 → ER 10:03
DX: I50.9 Heart failure, unspecified (principal); I11.0 Hypertensive heart disease with heart failure; E11.9 Type 2 diabetes mellitus without complications; J44.9 Chronic obstructive pulmonary disease, unspecified; F17.210 Nicotine dependence, cigarettes, uncomplicated; Z79.82 Long term (current) use of aspirin; Z79.2 Long term (current) use of antibiotics; Z79.899 Other long term (current) drug therapy; Z20.822 Contact with and (suspected) exposure to COVID-19
CPT/HCPCS: 36415; 71046; 80053; 81001; 83880; 84484; 85025; 85610; 85730; 87426; 93005; 96374; 99285; J1940

== ENCOUNTER 2022-05-08 23:16 | Emergency (ER) | payer MEDICAID ==
[~2022-05-08] VITALS: Ht 172.7 cm; Wt 90.0 kg
[2022-05-09 03:30] VITALS: BP 142/79
[2022-05-09 06:03] LABS: Basophils # (auto) 0.1 10 ^3/uL (0-0.2); Eosinophils # (auto) 0.1 10 ^3/uL (0-0.8); Neutrophils # (auto) 3.1 10 ^3/uL (1.6-8.6); White Blood Cell 4.8 10^3/uL (4.4-10.8)
[2022-05-09 06:08] LABS: Basophils % (auto) 1.1 % (0.0-2.0); Hematocrit 30.8 % (36.0-46.0); Hemoglobin 9.6 g/dL (12.2-16.2); Lymphocytes # (auto) 0.9 10 ^3/uL (0.4-5.4); Lymphocytes % (auto) 19.4 % (10.0-50.0); Mean Corpuscular Hemoglobin 21.6 pg (28.0-32.0); Mean Corpuscular Hgb Conc. 31.2 g/dL (32.0-36.0); Mean Corpuscular Volume 69.2 fL (80.0-100.0); Monocytes # (auto) 0.5 10 ^3/uL (0-1.3); Monocytes % (auto) 11.3 % (0.0-12.0); Neutrophils % (auto) 65.2 % (37.0-80.0); Nucleated Red Blood Cells % 0.3 %; Red Blood Cells 4.45 10^6/uL (4.0-5.20)
[2022-05-09 06:14] LABS: Red Cell Distribution Width 25.6 % (11.8-14.3)
[2022-05-09 06:27] LABS: Chloride 104 mmol/L (98-107); Potassium 4.9 mmol/L (3.5-5.1); Sodium 135 mmol/L (136-145)
[2022-05-09 06:42] LABS: Alanine Aminotransferase 42 U/L (13-56); Albumin 3.3 g/dL (3.4-5.0); Alkaline Phosphatase 137 U/L (45-117); Anion Gap 10 (5-15); Aspartate Aminotransferase 74 U/L (15-37); Bilirubin, Total 5.5 mg/dL (0.2-1.0); Blood Alcohol < 3.0 mg/dL (0-5); Blood Urea Nitrogen 25 mg/dL (7-18); Calcium 9.2 mg/dL (8.5-10.1); Carbon Dioxide 21 mmol/L (21-32); GFR African American 77 mL/min; GFR Non-African American 64 mL/min; Glucose 74 mg/dL (74-106); Total Protein 8.8 g/dL (6.4-8.2)
[2022-05-09 07:43] LABS: Acetaminophen < 2.0 ug/mL (10-30); Salicylate < 1.7 mg/dL (2.8-20.0)
== END 2022-05-09 07:42 | disposition home or self-care (01) ==
LOC: EDUNIT# 23:16 → ER 23:16 → EDBD 23:16 → ER 05-09 07:42
DX: F41.9 Anxiety disorder, unspecified (principal); F17.210 Nicotine dependence, cigarettes, uncomplicated; F12.10 Cannabis abuse, uncomplicated; F15.10 Other stimulant abuse, uncomplicated; I11.0 Hypertensive heart disease with heart failure; I50.9 Heart failure, unspecified; J44.9 Chronic obstructive pulmonary disease, unspecified
CPT/HCPCS: 36415; 71045; 80053; 80320; 80329; 84484; 85025; 93005